=== PATIENT | male | born 1945 | race Caucasian/White ===

== ENCOUNTER → 2024-03-17 12:41 | Outpatient (CLI) | payer OTHER, SELFPAY ==
--- NOTE | 2024-03-17 12:44 | DI.ECHO.S_ITS ---
[facility] +---------+ : : [address] : [address] : : : : [id number] : : : : Phone: [phone]---------+ Echocardiogram Report + + :Name: CATHY DICKINSON Study Date: 03/17/2024 Height: 70 in : :[facility] ReadingLocation: Weight: 156 lb : : Gender: Male BSA: 1.9 m2 : :: 1945 Age: 78 yrs BP: 116/53 mmHg: :Reason For Study: HEART FAILURE : :Ordering Physician: HOLLY, : :ELLE Jackson MD Performed By: Rebecca Woody : :Referring: ELLE BARRERA MD : + + Interpretation Summary The left ventricle is normal in size and wall thickness. Left ventricular ejection fraction is estimated to be 50%. Left ventricular systolic function is low normal. Left ventricular wall motion is normal. Diastolic parameters suggest a relaxation abnormality of the left ventricle, consistent with probable normal filling pressures. The right ventricle is mildly dilated. The right ventricular systolic function is normal. The right ventricular systolic pressure is estimated to be at least 23 mmHg based on an estimated right atrial pressure of 3 mm Hg. The left atrium is borderline dilated. There is mild mitral regurgitation. The aortic root is normal size. Procedure: A two-dimensional transthoracic echocardiogram with color flow and Doppler was performed. The study quality was technically adequate. There is no prior echocardiogram noted for this patient. The patient had frequent PVCs during the exam. Patient had short runs of bigeminy throughout exam. The heart rate ranged between 63-72 bpm during the study. Left Ventricle: The left ventricle is normal in size and wall thickness. Left ventricular ejection fraction is estimated to be 50%. Left ventricular systolic function is low normal. Left ventricular wall motion is normal. Diastolic parameters suggest a relaxation abnormality of the left ventricle, consistent with probable normal filling pressures. Right Ventricle: The right ventricle is mildly dilated. The right ventricular systolic function is normal. Atria: The left atrium is borderline dilated. Right atrial size is normal. There is no Doppler evidence for an interatrial shunt. Mitral Valve: The mitral valve leaflets appear mildly thickened, but open well. There is mild mitral regurgitation. Aortic Valve: The aortic valve is trileaflet. The aortic valve opens well. The aortic valve is slightly calcified. There is no aortic valve stenosis. No aortic regurgitation is present. Tricuspid Valve: The tricuspid valve is normal in structure and function. There is mild tricuspid regurgitation. The right ventricular systolic pressure is estimated to be at least 23 mmHg based on an estimated right atrial pressure of 3 mm Hg. Pulmonic Valve: The pulmonic valve is not well visualized. There is trace pulmonic regurgitation. Great Vessels: The aortic root is normal size. The dimensions of the ascending aorta are normal. The IVC is of normal diameter and collapses greater than 50% with a sniff. This suggests a low right atrial pressure of 3 mm Hg. Pericardium/ Pleura There is no pericardial effusion. There is no pleural effusion. MMode/2D Measurements & Calculations LVIDd: 4.2 cm LVOT diam: 2.2 cm LVIDs: 3.0 cm Ao root diam: 3.5 cm FS: 29.2 % asc Aorta Diam: 3.1 cm EPSS: 0.55 cm Ao Arch Diam (Prox Trans): 2.8 cm IVSd: 0.98 cm LVPWd: 0.70 cm LV funes. diameter/BSA (cm/m^2): 2.3 LV sys. diameter/BSA (cm/m^2): 1.6 LA A2 area: 21.7 cm2 RA long axis: 5.2 cm LA A4 area: 20.2 cm2 RA area: 16.4 cm2 LA length (vol): 5.9 cm RA vol: 43.8 ml LA vol: 63.4 ml RA : 23.3 ml/m2 LA vol index: 33.8 ml/m2 IVC diam: 1.2 cm RVD1 (basal): 4.2 cm RVD2 (mid): 3.2 cm TAPSE: 2.8 cm Doppler Measurements & Calculations Ao V2 max: 138.7 cm/sec LVOT Max Maximilian: 92.5 cm/sec Ao V2 mean: 100.6 cm/sec LV V1 max P.4 mmHg Ao max P.7 mmHg LV V1 VTI: 18.4 cm Ao mean P.4 mmHg NATHEN(I,D): 2.6 cm2 Ao V2 VTI: 26.4 cm NATHEN(V,D): 2.5 cm2 sev ratio: 0.69 NATHEN indexed to BSA (cm^2/m^2): 1.4 MV E max maximilian: 50.1 cm/sec TR max maximilian: 250.5 cm/sec MV A max maximilian: 62.0 cm/sec TR max P.1 mmHg MV E/A: 0.81 PA V2 max: 98.9 cm/sec Med Peak E' Maximilian: 5.5 cm/sec PA V2 mean: 66.1 cm/sec E/E' med: 9.1 PA mean P.0 mmHg Lat Peak E' Maximilian: 11.8 cm/sec PA pr(Accel): 19.9 mmHg E/E' lat: 4.2 E/e' average: 6.7 MV dec time: 0.39 sec SV(LVOT): 69.3 ml Reading Physician:10:50 PM
== END ==
PROVIDERS: Referring Provider Internal Medicine Cardiovascular Disease; Visit Provider Internal Medicine Cardiovascular Disease
DX: I50.9 Heart failure, unspecified (principal); I25.10 Atherosclerotic heart disease of native coronary artery without angina pectoris; E11.9 Type 2 diabetes mellitus without complications; I08.1 Rheumatic disorders of both mitral and tricuspid valves
CPT/HCPCS: 93306